=== PATIENT | female | born 1965 | race Caucasian/White ===

== ENCOUNTER 2017-08-10 09:29 | Emergency (ER) | payer OTHER ==
[~2017-08-10] VITALS: Ht 163.8 cm; Wt 59.0 kg
[2017-08-10 09:54] VITALS: BP 151/88
[2017-08-10 10:36] LABS: NEGATIVE OBC STREP NEG; POSITIVE OBC STREP POS
[2017-08-10] MEDS ORDERED: AZIT250T PO (10:47)
[2017-08-10] MEDS ORDERED: PROAIR RESPICL90 MCG IH (10:47)
[2017-08-10] MEDS ORDERED: BENZ100C PO (10:47)
[2017-08-10] MEDS ORDERED: PRED50TA PO (10:47)
--- NOTE | 2017-08-10 10:47 | PHYS DOC ---
Past Medical History Past Medical History: Other Additional Past Medical Histor: SINUS INFECTION Past Surgical History: Other Additional Past Surgical Histo: RIGHT CARPEL TUNNEL Alcohol Use: None Drug Use: None Adult General Chief Complaint Chief Complaint: FLU SYMPTOM HPI HPI Patient is a 51 year old female who presents complaining of sore throat, cough , body aches and chills that began yesterday. Patient states she got her flu shot a couple months ago. Denies any fever. Review of Systems Review of Systems Constitutional: Reports chills denies fever Eyes: Denies change in visual acuity, redness, or eye pain [] HENT: Reports nasal congestion. Denies nasal congestion Respiratory: Reports cough denies shortness of breath [] Cardiovascular: No additional information not addressed in HPI [] GI: Denies abdominal pain, nausea, vomiting, bloody stools or diarrhea [] : Denies dysuria or hematuria [] Musculoskeletal: Denies back pain or joint pain [] Integument: Denies rash or skin lesions [] Neurologic: Denies headache, focal weakness or sensory changes [] All other systems were reviewed and found to be within normal limits, except as documented in this note. Allergies Allergies Allergies Coded Allergies Type Severity Reaction Last Updated Verified Penicillins Allergy Intermediate 08/10/17 No Physical Exam Physical Exam Constitutional: Well developed, well nourished, no acute distress, non-toxic appearance. [] HENT: Normocephalic, atraumatic, bilateral external ears normal, oropharynx moist, no oral exudates, nose normal. [] Posterior pharynx with mild erythema. +2 right anterior cervical adenopathy. Eyes: PERRLA, EOMI, conjunctiva normal, no discharge. [] Neck: Normal range of motion, no tenderness, supple, no stridor. [] Cardiovascular:Heart rate regular rhythm, no murmur [] Lungs & Thorax: Bilateral breath sounds clear to auscultation [] Abdomen: Bowel sounds normal, soft, no tenderness, no masses, no pulsatile masses. [] Skin: Warm, dry, no erythema, no rash. [] Back: No tenderness, no CVA tenderness. [] Extremities: No tenderness, no cyanosis, no clubbing, ROM intact, no edema. [] Neurologic: Alert and oriented X 3, normal motor function, normal sensory function, no focal deficits noted. [] Psychologic: Affect normal, judgement normal, mood normal. [] Current Patient Data Vital Signs Vital Signs Date Time Temp Pulse Resp B/P (MAP) Pulse Ox O2 Delivery O2 Flow Rate FiO2 08/10/17 09:54 98.1 96 18 100 Room Air 98.1 Lab Values Laboratory Tests Test 08/10/17 10:05 Group A Streptococcus Rapid Negative (NEGATIVE) EKG EKG [] Radiology/Procedures Radiology/Procedures [] Course & Med Decision Making Course & Med Decision Making Pertinent Labs and Imaging studies reviewed. (See chart for details) Patient has pharyngitis and a cough, we'll be discharged with azithromycin, prednisone, and albuterol inhaler. She was also given a prescription for Tessalon Perles. Saltwater gargles recommended. Follow-up with PCP in 1-2 weeks. Miguel Disclaimer Miguel Disclaimer This electronic medical record was generated, in whole or in part, using a voice recognition dictation system. Departure Departure Impression: Primary Impression: Cough Additional Impression: Pharyngitis, acute Disposition: 01 HOME, SELF-CARE Condition: STABLE Referrals: NO PCP (PCP) follow up with your doctor in 1 week Patient Instructions: Cough, Adult, [id number], Viral and Bacterial Pharyngitis Additional Instructions: You were seen for pharyngitis and a cough. Take the prescribed medicines as ordered. Follow-up with your doctor in 1-2 weeks. Use saltwater gargles as needed. You can also take Tylenol/Motrin for pain or fever. Scripts Albuterol Sulfate (Proair Respiclick) 90 Mcg Aer.pow.ba 1 PUFF IH PRN Q6HRS Y for SHORTNESS OF BREATH, #1 INHALER Prov: JOHNSON RESENDEZ [employer]OBATION COUNSELOR 08/10/17 Benzonatate (TESSALON PERLE) 100 Mg Capsule 1 CAP PO TID, #30 CAP Prov: JOHNSON RESENDEZ PROBATION COUNSELOR 08/10/17 Azithromycin (ZITHROMAX) 250 Mg Tablet 1 PKG PO UD, #1 PKG Prov: ZACHERYAJOHNSON PROBATION COUNSELOR 08/10/17 Prednisone (PREDNISONE) 50 Mg Tablet 1 TAB PO DAILY, #5 TAB Prov: JOHNSON RESENDEZ PROBATION COUNSELOR 08/10/17 Problem Qualifiers Additional Impression: Pharyngitis, acute Pharyngitis/tonsillitis etiology: unspecified etiology Qualified Codes: J02.9 - Acute pharyngitis, unspecified JAYSHREEMAGNUSJOHNSON Guallpa APRN Aug 10, 2017 10:47
== END 2017-08-10 11:00 | disposition home or self-care (01) ==
LOC: ER 09:29
DX: J02.9 Acute pharyngitis, unspecified (principal); Z88.0 Allergy status to penicillin
CPT/HCPCS: 87070; 87880; 99283

== ENCOUNTER 2017-10-07 19:48 | Emergency (ER) | payer OTHER ==
[2017-10-07 21:19] LABS: INFLUENZA A PATIENT NEGATIVE (NEGATIVE); INFLUENZA B PATIENT NEGATIVE (NEGATIVE); OBC FLU VALID
[2017-10-08 08:45] LABS: NEGATIVE OBC STREP NEG; POSITIVE OBC STREP POS
== END 2017-10-07 22:18 | disposition home or self-care (01) ==
LOC: ER 19:48
DX: B34.9 Viral infection, unspecified (principal); Z88.0 Allergy status to penicillin
CPT/HCPCS: 87070; 87804; 87804-59; 87880; 99284

== ENCOUNTER 2018-03-22 21:27 | Emergency (ER) | payer OTHER | END 2018-03-22 22:37 | disposition home or self-care (01) | LOC: ER 21:27 | DX: S20.211A Contusion of right front wall of thorax, initial encounter (principal); Z88.0 Allergy status to penicillin; X58.XXXA Exposure to other specified factors, initial encounter; Y93.89 Activity, other specified; Y92.89 Other specified places as the place of occurrence of the external cause; Y99.8 Other external cause status | CPT/HCPCS: 71101; 99284 ==

== ENCOUNTER 2020-04-20 19:06 | Emergency (ER) | payer MEDICAID, OTHER ==
[~2020-04-20] VITALS: Ht 162.6 cm; Wt 67.8 kg
[~2020-04-20 19:06] MED LIST: AZIT250T PO; BENZ100C PO; PRED50TA PO; PROAIR RESPICL90 MCG IH
[2020-04-20 19:18] VITALS: BP 167/94
[2020-04-20] MEDS ORDERED: AZIT250T6 PO (19:36)
--- NOTE | 2020-04-20 19:37 | PHYS DOC ---
Past Medical History Past Medical History: Other Additional Past Medical Histor: SINUS INFECTION Past Surgical History: Other Additional Past Surgical Histo: RIGHT CARPEL TUNNEL Smoking Status: Never Smoker Alcohol Use: None Drug Use: None General Adult EDM: Chief Complaint: EARACHE/EAR PAIN HPI: HPI: Patient is a 54 year old female who presents with Right ear pain since yesterday. Tender with examination. Redness and swelling of ear canal. Ear is impacted with wax. Patient denies fever, dizziness, nausea, vomiting, cough, abdominal pain, diarrhea, chest pain, soa, numbness or tingling, nasal congestion, sore throat, vision changes, headache. Rate pain a 6/10 with radiation to the back of the ear. Patient does have a history of ear wax impaction and ear infections. Review of Systems: Review of Systems: Constitutional: Denies fever or chills. [] Eyes: Denies change in visual acuity. [] HENT: Denies nasal congestion or sore throat. Right ear pain. [] Respiratory: Denies cough or shortness of breath. [] Cardiovascular: Denies chest pain or edema. [] GI: Denies abdominal pain, nausea, vomiting, bloody stools or diarrhea. [] : Denies dysuria. [] Musculoskeletal: Denies back pain or joint pain. [] Integument: Denies rash. Right ear canal redness and swelling. [] Neurologic: Denies headache, focal weakness or sensory changes. [] Endocrine: Denies polyuria or polydipsia. [] Lymphatic: Denies swollen glands. [] Psychiatric: Denies depression or anxiety. [] Heart Score: Risk Factors: Risk Factors: DM, Current or recent (<one month) smoker, HTN, HLP, family history of CAD, obesity. Risk Scores: Score 0 - 3: 2.5% MACE over next 6 weeks - Discharge Home Score 4 - 6: 20.3% MACE over next 6 weeks - Admit for Clinical Observation Score 7 - 10: 72.7% MACE over next 6 weeks - Early Invasive Strategies Allergies: Allergies: Allergies Coded Allergies Type Severity Reaction Last Updated Verified Penicillins Allergy Intermediate 08/10/17 No Physical Exam: PE: Constitutional: Well developed, well nourished, no acute distress, non-toxic ap pearance. [] HENT: Normocephalic, atraumatic, bilateral external ears normal, oropharynx moist, no oral exudates, nose normal. Right ear canal redness and swelling and tenderness. Right ear canal impaction of wax. Tympanic ruptured. [] Eyes: PERRLA, EOMI, conjunctiva normal, no discharge. [] Neck: Normal range of motion, no tenderness, supple, no stridor. [] Cardiovascular:Heart rate regular rhythm, no murmur [] Lungs & Thorax: Bilateral breath sounds clear to auscultation [] Abdomen: Bowel sounds normal, soft, no tenderness, no masses, no pulsatile masses. [] Skin: Warm, dry, no erythema, no rash. [] Back: No tenderness, no CVA tenderness. [] Extremities: No tenderness, no cyanosis, no clubbing, ROM intact, no edema. [] Neurologic: Alert and oriented X 3, normal motor function, normal sensory function, no focal deficits noted. [] Psychologic: Affect normal, judgement normal, mood normal. [] Current Patient Data: Vital Signs: Vital Signs Date Time Temp Pulse Resp B/P (MAP) Pulse Ox O2 Delivery O2 Flow Rate FiO2 04/20/20 19:18 98.7 97 16 167/94 (118) 100 Room Air 98.7 EKG: EKG: [] Radiology/Procedures: Radiology/Procedures: [] Course & Med Decision Making: Course & Med Decision Making Pertinent Labs and Imaging studies reviewed. (See chart for details) See HPI. Alert and oriented x4. Ambulatory with steady gait. Speaks in full clear sentences. Skin pink warm and dry. No lymph nodes are felt. Throat is pink without exudates or swelling. No trismus. Uvula midline. Patient is given azithromycin since she is allergic to penicillins. After ear is flushed I can now see the ear drum. It looks as if the ear tympanic has ruptured. [] Dragon Disclaimer: Dragon Disclaimer: This electronic medical record was generated, in whole or in part, using a voice recognition dictation system. Departure Departure Impression: Primary Impression: Otitis externa Qualified Codes: H60.501 - Unspecified acute noninfective otitis externa, right ear Additional Impression: Right ear impacted cerumen Disposition: 01 HOME, SELF-CARE Condition: STABLE Referrals: NO PCP (PCP) Patient Instructions: Cerumen Impaction, Otitis Externa Additional Instructions: Follow-up with primary care provider soon as possible. Do not let water get in the infected ear. Take antibiotic until its gone and take with food. Use a warm compress and ibuprofen to help with your pain. Scripts Azithromycin (AZITHROMYCIN TABLET) 250 Mg Tablet 1 PKG PO UD for 5 Days, #6 TAB 0 Refills 2 the first day followed by 1 for days 2-5 Prov: ALEXANDRO PACHECO APRN 04/20/20 Justicifation of Admission Dx: Justifications for Admission: Justification of Admission Dx: N/A ALEXANDRO PACHECO APRN Apr 20, 2020 19:37
== END 2020-04-20 19:52 | disposition home or self-care (01) ==
LOC: ER 19:06
DX: H60.8X1 Other otitis externa, right ear (principal); H61.21 Impacted cerumen, right ear; R60.0 Localized edema; Z98.890 Other specified postprocedural states
CPT/HCPCS: 69209; 99283